=== PATIENT | female | born 1995 | race Two or more races ===

== ENCOUNTER 2017-11-30 15:52 | Emergency (ER) | payer SELFPAY ==
[~2017-11-30] VITALS: Ht 157.5 cm; Wt 56.7 kg
--- NOTE | 2017-11-30 15:55 | NUR ---
Note cresencioana in EDM - 11/30/17 at 1743 by MEJIA [id number] + PD FOUND DOWN IN THE PARKING LOT, CPR INITIATED BY PD, OD IN HEROIN. 2 NARCAN AND 4 ZOFRAN GIVEN B Y EMS. BS-146, NAD NOTED, VSS, RESP EVEN AND UNLABORED, PT WAS PUT ON MONITOR, WAITING FOR MD WARNER
--- NOTE | 2017-11-30 15:55 | NUR ---
[id number] + PD FOUND DOWN IN THE PARKING LOT, CPR INITIATED BY PD OD IN HEROIN. 2 NARCAN AND 4 ZOFRAN GIVEN B Y EMS. BS-146, NAD NOTED, VSS, RESP EVEN AND UNLABORED, PT WAS PUT ON MONITOR, AT BS.
[2017-11-30 16:21] LABS: BASOPHILS # (AUTO) 0.1 /CMM (0.0-0.2); BASOPHILS % (AUTO) 1.4 % (0.0-2.0); EOSINOPHILS % (AUTO) 1.6 % (0.0-6.0); HEMATOCRIT 39 % (33-45); HEMOGLOBIN 13.5 g/dL (11.5-14.8); LYMPHOCYTES # (AUTO) 3.3 /CMM (0.8-4.8); LYMPHOCYTES % (AUTO) 32.6 % (20.0-44.0); MEAN CORPUSCULAR HGB CONC 35 g/dl (31.0-36.0); MEAN CORPUSCULAR VOLUME 87 fL (82-100); MONOCYTES # (AUTO) 0.7 /CMM (0.1-1.30); MONOCYTES % (AUTO) 6.8 % (2.0-12.0); NEUTROPHILS # (AUTO) 5.8 /CMM (1.8-8.9); NEUTROPHILS % (AUTO) 57.6 % (43.0-81.0); PLATELET COUNT (AUTO) 356 /CMM (150-450); RDW COEFFICIENT OF VARIATION 14.8 (11.5-15.0); WHITE BLOOD COUNT (AUTO) 10.1 K/uL (4.3-11.0)
--- NOTE | 2017-11-30 16:26 | NUR ---
[facility] [place] [phone]
[2017-11-30 16:28] LABS: CALCIUM, SERUM 8.3 mg/dL (8.5-10.1); CREATININE 0.7 mg/dL (0.6-1.3); POTASSIUM 3.7 mmol/L (3.5-5.1)
[2017-11-30 17:34] VITALS: BP 108/68
--- NOTE | 2017-11-30 17:40 | NUR ---
Patient eloped from facility. ER MD notified.
--- NOTE | 2017-11-30 17:40 | NUR ---
IV removed. Catheter intact and site benign. Pressure and 4x4 applied to site. No bleeding noted.
== END 2017-11-30 17:59 | disposition left against medical advice (07) ==
LOC: ER 15:54
DX: T40.1X1A Poisoning by heroin, accidental (unintentional), initial encounter (principal); Y92.481 Parking lot as the place of occurrence of the external cause
CPT/HCPCS: 36415; 71045-TC; 80048-TC; 84703-TC; 85025-TC; A4606; Z7610